=== PATIENT | male | born 1990 | race Caucasian/White ===

== ENCOUNTER 2018-07-20 06:22 | Emergency (ER) | payer MEDICAID ==
[2018-07-20 06:27] VITALS: BP 147/89
[2018-07-20] MEDS ORDERED: Aluminum Hydroxide/Magnesium Hydroxide/Simethicone Susp 30 ML Cup PO ONE (06:41)
--- NOTE | 2018-07-20 06:45 | EDM.PDOC ---
ED HPI GENERAL MEDICAL PROBLEM - General Chief Complaint: Chest Pain Stated Complaint: CHEST PAIN Time Seen by Provider: 07/20/18 06:35 Source of Information: Reports: Patient History Limitations: Reports: No Limitations - History of Present Illness INITIAL COMMENTS - FREE TEXT/NARRATIVE: 27-year-old male with a history of reflux esophagitis and gastritis presents with chest pressure this morning. He took a Prilosec and it's improving. No shortness of breath, no radiation of pain, no diaphoresis. He had jalapeno poppers last evening. He just wanted to make sure it wasn't his heart. He had similar symptoms a couple weeks ago and was checked out in the clinic, was told it was acid reflux. Location: Reports: Chest Quality: Reports: Burning, Pressure Improves with: Reports: Other (Nexium helps) Chest Pain Score (Numeric/FACES): 5 - Related Data Allergies Allergy/AdvReac Type Severity Reaction Status Date / Time No Known Allergies Allergy Verified 07/20/18 06:27 Home Meds: Home Meds Omeprazole 20 mg PO BID 07/20/18 [History] Past Medical History HEENT History: Reports: Other (See Below) Other HEENT History: Strep throat Gastrointestinal History: Reports: GERD, Other (See Below) Other Gastrointestinal History: acid reflux - Infectious Disease History Infectious Disease History: Reports: Chicken Pox - Past Surgical History GI Surgical History: Reports: Hernia Repair/Other Social & Family History - Family History Cardiac: Reports: CAD Endocrine/Metabolic: Reports: Diabetes, type II - Tobacco Use Smoking Status *Q: Never Smoker - Caffeine Use Caffeine Use: Reports: Energy Drinks, Soda - Recreational Drug Use Recreational Drug Use: No ED ROS GENERAL - Review of Systems Review Of Systems: See Below Constitutional: Denies: Fever, Chills HEENT: Reports: No Symptoms Respiratory: Denies: Shortness of Breath Cardiovascular: Reports: Chest Pain. Denies: Palpitations Endocrine: Denies: Fatigue GI/Abdominal: Denies: Nausea, Vomiting : Reports: No Symptoms Psychiatric: Reports: Anxiety ED EXAM, GENERAL - Physical Exam Exam: See Below Exam Limited By: No Limitations General Appearance: Alert, No Apparent Distress Respiratory/Chest: No Respiratory Distress, Lungs Clear Cardiovascular: Regular Rate, Rhythm GI/Abdominal: Soft, Non-Tender Neurological: Alert, Oriented Psychiatric: Anxious EKG INTERPRETATION Rhythm: NSR Course - Vital Signs Last Recorded V/S: Last Vital Signs Temp 97.6 F 07/20/18 06:25 Pulse 60 07/20/18 06:25 Resp 20 07/20/18 06:25 BP 147/89 H 07/20/18 06:25 Pulse Ox 98 07/20/18 06:25 - Orders/Labs/Meds Orders: Active Orders 24 hr Category Date Time Status EKG Documentation Completion [RC] ASDIRECTED Care 07/20/18 06:54 Active EKG 12 Lead [EK] Routine Ther 07/20/18 06:54 Ordered Meds: Medications Discontinued Medications Generic Name Dose Route Start Last Admin Trade Name Laurie PRN Reason Stop Dose Admin Al Hydroxide/Mg Hydroxide 30 ml 07/20/18 06:41 07/20/18 06:44 Mag-Al Plus PO 07/20/18 06:42 30 ml ONETIME ONE Administration - Re-Assessments/Exams Free Text/Narrative Re-Assessment/Exam: 07/20/18 06:45 An EKG was done which is perfectly normal. Patient was then given 30 mL of Maalox. 07/20/18 06:51 Maalox almost incidentally took away his discomfort. He is going to start Nexium daily and get liquid antacid for breakthrough reflux. Departure - Departure Time of Disposition: 07:00 Disposition: Home, Self-Care 01 Condition: Good Clinical Impression: Acid reflux Qualifiers: Esophagitis presence: esophagitis presence not specified Qualified Code(s): K21.9 - Gastro-esophageal reflux disease without esophagitis - Discharge Information Instructions: Heartburn, [id number]-Hoet Referrals: PCP,None [Primary Care Provider] - Forms: ED Department Discharge Care Plan Goals: Start Nexium daily and add liquid antacid as needed for extra control. Recheck with your regular doctor if symptoms persist despite treatment. - My Orders Last 24 Hours: My Active Orders 07/20/18 06:54 EKG Documentation Completion [RC] ASDIRECTED EKG 12 Lead [EK] Routine - Assessment/Plan Last 24 Hours: My Active Orders 07/20/18 06:54 EKG Documentation Completion [RC] ASDIRECTED EKG 12 Lead [EK] Routine
== END 2018-07-20 07:01 | disposition home or self-care (01) ==
LOC: JP.ED 06:22
DX: K21.9 Gastro-esophageal reflux disease without esophagitis (principal); Z79.899 Other long term (current) drug therapy
CPT/HCPCS: 93005; 99285; A9270

== ENCOUNTER 2019-03-04 11:15 | Emergency (ER) | payer MEDICAID, OTHER ==
[2019-03-04] MEDS ORDERED: Diphtheria,Pertussis(Acell),Tetanus Vaccine 0.5 ML SDV IM ONE (11:43)
--- NOTE | 2019-03-04 11:52 | EDM.PDOC ---
ED HPI GENERAL MEDICAL PROBLEM - General Chief Complaint: Laceration Stated Complaint: CUT OPEN L THUMB Time Seen by Provider: 03/04/19 11:40 Source of Information: Reports: Patient History Limitations: Reports: No Limitations - History of Present Illness INITIAL COMMENTS - FREE TEXT/NARRATIVE: Patient was at work when he sustained a superficial laceration to his left thumb. Denies any other injuries. DT not up to date. Onset: Today, Sudden - Related Data Allergies Allergy/AdvReac Type Severity Reaction Status Date / Time No Known Allergies Allergy Verified 07/20/18 06:27 Home Meds: Home Meds NK [No Known Home Meds] 03/04/19 [History] Past Medical History HEENT History: Reports: Other (See Below) Other HEENT History: Strep throat Gastrointestinal History: Reports: GERD, Other (See Below) Other Gastrointestinal History: acid reflux - Infectious Disease History Infectious Disease History: Reports: Chicken Pox - Past Surgical History GI Surgical History: Reports: Hernia Repair/Other Social & Family History - Family History Cardiac: Reports: CAD Endocrine/Metabolic: Reports: Diabetes, type II - Tobacco Use Smoking Status *Q: Never Smoker - Caffeine Use Caffeine Use: Reports: Energy Drinks, Soda ED ROS GENERAL - Review of Systems Review Of Systems: ROS reveals no pertinent complaints other than HPI. ED EXAM, SKIN/RASH Exam: See Below Exam Limited By: No Limitations General Appearance: Alert, WD/WN, No Apparent Distress Head: Atraumatic Neck: Normal Inspection, Supple Respiratory/Chest: No Respiratory Distress Cardiovascular: Regular Rate, Rhythm Extremities: Normal Inspection Neurological: Alert, Oriented, CN II-XII Intact, No Motor/Sensory Deficits Psychiatric: Normal Affect, Normal Mood Skin: Warm, Dry, Other (very superficial 1 cm laceration to left thumb pad, closed with Dermabond after cleaning well with Hebiclens and Saline) Course - Vital Signs Last Recorded V/S: Last Vital Signs Temp 35.9 C 03/04/19 11:39 Pulse 86 03/04/19 11:39 Resp 16 03/04/19 11:39 BP 123/78 03/04/19 11:39 Pulse Ox 95 03/04/19 11:39 Superficial Left Thumb Laceration Cleaned and Closed with Dermabond DT Updated Return to work with no restrictions - Orders/Labs/Meds Orders: Active Orders 24 hr Category Date Time Status Vaccines to be Administered [RC] PER UNIT ROUTINE Care 03/04/19 11:43 Ordered Meds: Medications Discontinued Medications Generic Name Dose Route Start Last Admin Trade Name Laurie PRN Reason Stop Dose Admin Diphtheria/Tetanus/Acell Pertussis 0.5 ml 03/04/19 11:43 Adacel IM 03/04/19 11:44 .ONCE ONE Departure - Departure Time of Disposition: 12:00 Disposition: Home, Self-Care 01 Condition: Good Clinical Impression: Laceration of thumb Qualifiers: Encounter type: initial encounter Damage to nail status: without damage Foreign body presence: without foreign body Laterality: left Qualified Code(s): S61.012A - Laceration without foreign body of left thumb without damage to nail , initial encounter - Discharge Information Instructions: Stitches, Rosario, or Adhesive Wound Closure, [id number] Referrals: PCP,None [Primary Care Provider] - Additional Instructions: Keep Clean and Dry. DO not use Bacitracin or Neosporin on wound as it will erode the glue Return with any concerns. - My Orders Last 24 Hours: My Active Orders 03/04/19 11:43 Vaccines to be Administered [RC] PER UNIT ROUTINE - Assessment/Plan Last 24 Hours: My Active Orders 03/04/19 11:43 Vaccines to be Administered [RC] PER UNIT ROUTINE
[2019-03-04 12:52] VITALS: BP 123/78; PULSE 86
== END 2019-03-04 12:09 | disposition home or self-care (01) ==
LOC: JP.ED 11:15
DX: S61.012A Laceration without foreign body of left thumb without damage to nail, initial encounter (principal); Z23 Encounter for immunization; W26.0XXA Contact with knife, initial encounter; Y99.0 Civilian activity done for income or pay
CPT/HCPCS: 12001; 90471; 90715; 99282-25; 99283

== ENCOUNTER 2020-08-23 07:41 | Emergency (ER) | payer OTHER, MEDICAID ==
[2020-08-23 08:14] VITALS: PULSE 75
--- NOTE | 2020-08-23 08:32 | EDM.PDOC ---
ED HPI GENERAL MEDICAL PROBLEM - General Chief Complaint: Bite:Animal, Insect Stated Complaint: SPIDER BITE? Time Seen by Provider: 08/23/20 08:24 Source of Information: Reports: Patient, Old Records, RN History Limitations: Reports: No Limitations - History of Present Illness INITIAL COMMENTS - FREE TEXT/NARRATIVE: 29 yo male presents with a wound to his R godoy. He noticed it yesterday morning. He is now sure how he got it. Says it kelley. His tetanus is UTD. Onset: Sudden Onset Date: 08/22/20 Duration: Day(s): (1), Constant Location: Reports: Lower Extremity, Right Quality: Reports: Burning Severity: Mild Improves with: Reports: None Worsens with: Reports: None Context: Reports: Trauma Associated Symptoms: Reports: No Other Symptoms Treatments [employer]: Reports: Other (see below) (cleaned at work yesterday) - Related Data Allergies Allergy/AdvReac Type Severity Reaction Status Date / Time No Known Allergies Allergy Verified 08/23/20 08:01 Home Meds: Home Meds NK [No Known Home Meds] 03/04/19 [History] Past Medical History - Past Health History Medical/Surgical History: Denies Medical/Surgical History HEENT History: Reports: Other (See Below) Other HEENT History: Strep throat Gastrointestinal History: Reports: GERD, Other (See Below) Other Gastrointestinal History: acid reflux - Infectious Disease History Infectious Disease History: Reports: Chicken Pox - Past Surgical History HEENT Surgical History: Reports: None GI Surgical History: Reports: Hernia Repair/Other Social & Family History - Family History Cardiac: Reports: CAD Endocrine/Metabolic: Reports: Diabetes, type II - Tobacco Use Tobacco Use Status *Q: Never Tobacco User - Caffeine Use Caffeine Use: Reports: Soda - Recreational Drug Use Recreational Drug Use: No ED ROS GENERAL - Review of Systems Review Of Systems: See Below Constitutional: Reports: No Symptoms Respiratory: Reports: No Symptoms Cardiovascular: Reports: No Symptoms GI/Abdominal: Reports: No Symptoms : Reports: No Symptoms Musculoskeletal: Reports: No Symptoms Skin: Reports: Wound Neurological: Reports: No Symptoms ED EXAM, ANIMAL BITE - Physical Exam Exam: See Below Exam Limited By: No Limitations General Appearance: Alert, WD/WN, No Apparent Distress, Obese Eye Exam: Bilateral Eye: Normal Inspection Ears: Normal External Exam, Hearing Grossly Normal Nose: Normal Inspection Throat/Mouth: Normal Lips, Normal Voice, No Airway Compromise Head: Atraumatic, Normocephalic Neck: Normal Inspection Respiratory/Chest: No Respiratory Distress Extremities: Normal Inspection Neurological: Alert, Oriented, CN II-XII Intact Psychiatric: Normal Affect, Normal Mood Skin Exam: Normal Color, Warm/Dry, Other (There is about a 1.5 cm wound to his R anterior godoy that is not fresh, there is no surrounding redness, no drainage, no induration. ) Course - Vital Signs Last Recorded V/S: Last Vital Signs Temp 36.6 C 08/23/20 08:13 Pulse 75 08/23/20 08:13 Resp 16 08/23/20 08:13 BP 170/97 H 08/23/20 08:13 Pulse Ox 96 08/23/20 08:13 Departure - Departure Time of Disposition: 08:28 Disposition: Home, Self-Care 01 Condition: Good Clinical Impression: Leg wound, right Qualifiers: Encounter type: initial encounter Qualified Code(s): S81.801A - Unspecified open wound, right lower leg, initial encounter - Discharge Information *PRESCRIPTION DRUG MONITORING PROGRAM REVIEWED*: Not Applicable *COPY OF PRESCRIPTION DRUG MONITORING REPORT IN PATIENT NITIN: Not Applicable Referrals: PCP,None [Primary Care Provider] - Additional Instructions: Clean your wound at least twice daily. Dry. Apply antibiotic ointment and a new dressing. Recheck for signs of infection. Sepsis Event Note (ED) - Evaluation Sepsis Screening Result: No Definite Risk - Focused Exam Vital Signs: Vital Signs Temp Pulse Resp BP Pulse Ox 08/23/20 08:13 36.6 C 75 16 170/97 H 96
[2020-08-23] MEDS ORDERED: Bacitracin Oint 1 GM U/D Packet TOP ONE (08:33)
[2020-08-23 08:35] VITALS: BP 128/79
== END 2020-08-23 08:47 | disposition home or self-care (01) ==
LOC: JP.ED 07:41
DX: S81.801A Unspecified open wound, right lower leg, initial encounter (principal); W57.XXXA Bitten or stung by nonvenomous insect and other nonvenomous arthropods, initial encounter
CPT/HCPCS: 99282

== ENCOUNTER 2020-09-05 05:38 | Emergency (ER) | payer MEDICAID ==
[2020-09-05 05:53] VITALS: BP 133/78; PULSE 67
--- NOTE | 2020-09-05 06:02 | EDM.PDOC ---
ED HPI GENERAL MEDICAL PROBLEM - General Chief Complaint: ENT Problem Stated Complaint: SORE THROAT Time Seen by Provider: 09/05/20 05:56 Source of Information: Reports: Patient History Limitations: Reports: No Limitations - History of Present Illness INITIAL COMMENTS - FREE TEXT/NARRATIVE: Shimon is a 29-year-old male presenting to the ED for evaluation of sore throat. Patient reports his symptoms started yesterday afternoon. He has a history for recurrent strep pharyngitis. He denies any fever, chills but does have pain with swallowing. throat Pain Score (Numeric/FACES): 6 - Related Data Allergies Allergy/AdvReac Type Severity Reaction Status Date / Time No Known Allergies Allergy Verified 09/05/20 05:49 Home Meds: Home Meds NK [No Known Home Meds] 03/04/19 [History] Past Medical History - Past Health History Medical/Surgical History: Denies Medical/Surgical History HEENT History: Reports: Other (See Below) Other HEENT History: Strep throat Gastrointestinal History: Reports: GERD, Other (See Below) Other Gastrointestinal History: acid reflux - Infectious Disease History Infectious Disease History: Reports: Chicken Pox - Past Surgical History HEENT Surgical History: Reports: None GI Surgical History: Reports: Hernia Repair/Other Social & Family History - Family History Cardiac: Reports: CAD Endocrine/Metabolic: Reports: Diabetes, type II - Tobacco Use Tobacco Use Status *Q: Never Tobacco User - Caffeine Use Caffeine Use: Reports: Coffee, Energy Drinks, Soda, Tea - Recreational Drug Use Recreational Drug Use: No ED ROS ENT - Review of Systems Review Of Systems: See Below Constitutional: Reports: No Symptoms HEENT: Reports: Throat Pain Respiratory: Reports: No Symptoms Cardiovascular: Reports: No Symptoms Endocrine: Reports: No Symptoms GI/Abdominal: Reports: No Symptoms : Reports: No Symptoms Musculoskeletal: Reports: No Symptoms Skin: Reports: No Symptoms Neurological: Reports: No Symptoms Psychiatric: Reports: No Symptoms Hematologic/Lymphatic: Reports: No Symptoms Immunologic: Reports: No Symptoms ED EXAM, ENT - Physical Exam Exam: See Below Exam Limited By: No Limitations General Appearance: Alert, No Apparent Distress Eye Exam: Bilateral Eye: EOMI, PERRL Nose: Normal Inspection Mouth/Throat: Normal Gums, Normal Lips, Pharyngeal Erythema, Tonsillar Erythema, Tonsillar Swelling. No: Tonsillar Exudates Head: Atraumatic, Normocephalic Neck: Normal Inspection, Supple, Non-Tender, Full Range of Motion. No: Lymphadenopathy (R), Lymphadenopathy (L) Respiratory/Chest: No Respiratory Distress, Lungs Clear, Normal Breath Sounds Cardiovascular: Normal Peripheral Pulses, Regular Rate, Rhythm, No Murmur GI/Abdominal: Normal Bowel Sounds, Soft, Non-Tender Neurological: Alert, Oriented, Normal Cognition, No Motor/Sensory Deficits Lymphatic: No Adenopathy Course - Vital Signs Last Recorded V/S: Last Vital Signs Temp 36.6 C 09/05/20 05:49 Pulse 67 09/05/20 05:49 Resp 16 09/05/20 05:49 BP 133/78 09/05/20 05:49 Pulse Ox 97 09/05/20 05:49 - Orders/Labs/Meds Orders: Active Orders 24 hr Category Date Time Status CULTURE STREP A CONFIRMATION [] Stat Lab 09/05/20 05:56 Results STREP SCRN A RAPID W CULT CONF [] Stat Lab 09/05/20 05:56 Results - Re-Assessments/Exams Free Text/Narrative Re-Assessment/Exam: 09/05/20 06:15 Shimon is a 29-year-old male presenting to the ED with sore throat that started yesterday afternoon. He does have a history for recurrent strep pharyngitis, however, on exam although he has tonsillar and pharyngeal erythema and edema, there are no exudates. He has no lymphadenopathy. He has no fever. A rapid group A strep test was performed and is negative. His symptoms are consistent with a viral pharyngitis. We will discussed management including salt water gargles, Sucrets or Chloraseptic lozenges, and Tylenol and/or ibuprofen for pain control. Indications return to the ED were discussed and the patient was discharged in satisfactory condition. Departure - Departure Time of Disposition: 06:16 Disposition: Home, Self-Care 01 Clinical Impression: Acute viral pharyngitis - Discharge Information *PRESCRIPTION DRUG MONITORING PROGRAM REVIEWED*: Not Applicable *COPY OF PRESCRIPTION DRUG MONITORING REPORT IN PATIENT NITIN: Not Applicable Instructions: Pharyngitis Referrals: PCP,None [Primary Care Provider] - Forms: ED Department Discharge Care Plan Goals: It appears that you have a viral infection affecting your throat. Your strep test was negative. I would recommend either doing salt water gargles and/or using Sucrets or Chloraseptic for symptomatic relief. You may also use Tylenol or ibuprofen for pain control. Unfortunately antibiotics are not warranted in this situation. Return to the ED should you have any significant worsening to the point where he cannot swallow or eat. We will reassess at that time. Sepsis Event Note (ED) - Evaluation Sepsis Screening Result: No Definite Risk - Focused Exam Vital Signs: Vital Signs Temp Pulse Resp BP Pulse Ox 09/05/20 05:49 36.6 C 67 16 133/78 97 - Problem List & Annotations (1) Acute viral pharyngitis SNOMED Code(s): 465887166 Code(s): J02.9 - ACUTE PHARYNGITIS, UNSPECIFIED Status: Acute Priority: Low Current Visit: Yes - Problem List Review Problem List Initiated/Reviewed/Updated: Yes - My Orders Last 24 Hours: My Active Orders 09/05/20 05:56 CULTURE STREP A CONFIRMATION [RM] Stat STREP SCRN A RAPID W CULT CONF [RM] Stat - Assessment/Plan Last 24 Hours: My Active Orders 09/05/20 05:56 CULTURE STREP A CONFIRMATION [RM] Stat STREP SCRN A RAPID W CULT CONF [RM] Stat
== END 2020-09-05 06:25 | disposition home or self-care (01) ==
LOC: JP.ED 05:38
DX: J02.9 Acute pharyngitis, unspecified (principal)
CPT/HCPCS: 87081; 87880-QW; 99283

== ENCOUNTER 2020-09-06 09:04 | Emergency (ER) | payer OTHER, MEDICAID ==
[2020-09-06 09:16] VITALS: BP 141/81; PULSE 72
[2020-09-06] MEDS ORDERED: Acetaminophen 500 MG Tab PO ONE (09:31)
[2020-09-06] MEDS ORDERED: Bacitracin Oint 1 GM U/D Packet TOP ONE (09:31)
[2020-09-06] MEDS ORDERED: Cyclobenzaprine 10 MG Tab PO ONE (09:31)
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
== END 2020-09-06 09:46 | disposition home or self-care (01) ==
LOC: JP.ED 09:04
DX: S39.012A Strain of muscle, fascia and tendon of lower back, initial encounter (principal); S00.81XA Abrasion of other part of head, initial encounter; V47.5XXA Car driver injured in collision with fixed or stationary object in traffic accident, initial encounter
CPT/HCPCS: 99283; A9270

== ENCOUNTER 2020-09-12 19:30 | Emergency (ER) | payer MEDICAID, OTHER ==
[2020-09-12 20:31] LABS: CORONAVIRUS COVID-19 NAA NEGATIVE (NEGATIVE)
--- NOTE | 2020-09-12 20:42 | EDM.PDOC ---
ED HPI GENERAL MEDICAL PROBLEM - General Chief Complaint: ENT Problem Stated Complaint: COVID SYMPTOMS Time Seen by Provider: 09/12/20 19:41 Source of Information: Reports: Patient History Limitations: Reports: No Limitations - History of Present Illness INITIAL COMMENTS - FREE TEXT/NARRATIVE: Shimon is a 29-year-old male presenting to the ED with concerns that he may have contracted Covid. Patient was in his usual state of health until today when he was eating lunch and started develop a sore throat and lost his sense of taste. The patient denies any fever but has had bilateral shoulder and neck pain. He denies any headache, shortness of breath, cough, nausea or vomiting, or diarrhea. Patient does not have any known Covid contacts. Headache Pain Score (Numeric/FACES): 5 - Related Data Allergies Allergy/AdvReac Type Severity Reaction Status Date / Time No Known Allergies Allergy Verified 09/06/20 09:15 Home Meds: Home Meds Cyclobenzaprine [Flexeril] 5 - 10 mg PO TID PRN #13 tab 09/06/20 [Rx] Past Medical History - Past Health History Medical/Surgical History: Denies Medical/Surgical History HEENT History: Reports: Other (See Below) Other HEENT History: Strep throat Respiratory History: Reports: SOB Gastrointestinal History: Reports: GERD, Other (See Below) Other Gastrointestinal History: acid reflux - Infectious Disease History Infectious Disease History: Reports: Chicken Pox - Past Surgical History Head Surgeries/Procedures: Reports: None HEENT Surgical History: Reports: None GI Surgical History: Reports: Hernia Repair/Other Social & Family History - Family History Family Medical History: No Pertinent Family History Cardiac: Reports: CAD Endocrine/Metabolic: Reports: Diabetes, type II - Tobacco Use Tobacco Use Status *Q: Never Tobacco User Second Hand Smoke Exposure: No - Caffeine Use Caffeine Use: Reports: Coffee, Energy Drinks - Recreational Drug Use Recreational Drug Use: No ED ROS ENT - Review of Systems Review Of Systems: See Below Constitutional: Reports: Other (Loss of taste today) HEENT: Reports: Throat Pain Respiratory: Reports: No Symptoms Cardiovascular: Reports: No Symptoms Endocrine: Reports: No Symptoms GI/Abdominal: Reports: No Symptoms : Reports: No Symptoms Musculoskeletal: Reports: No Symptoms Skin: Reports: No Symptoms Neurological: Reports: No Symptoms Psychiatric: Reports: No Symptoms Hematologic/Lymphatic: Reports: No Symptoms Immunologic: Reports: No Symptoms ED EXAM, ENT - Physical Exam Exam: See Below Exam Limited By: No Limitations General Appearance: Alert, No Apparent Distress, Anxious Eye Exam: Bilateral Eye: EOMI, PERRL Nose: Normal Inspection, Normal Mucousa Mouth/Throat: Normal Inspection, Normal Gums, Pharyngeal Erythema (Very mild erythema), Other (Green stripe down the middle of his tongue) Head: Atraumatic, Normocephalic Neck: Normal Inspection, Supple, Non-Tender, Full Range of Motion. No: Lymphadenopathy (R), Lymphadenopathy (L) Respiratory/Chest: No Respiratory Distress, Lungs Clear, Normal Breath Sounds Cardiovascular: Normal Peripheral Pulses, Regular Rate, Rhythm, No Murmur GI/Abdominal: Normal Bowel Sounds, Soft, Non-Tender Back: Normal Inspection, Full Range of Motion Extremities: Normal Inspection, Normal Range of Motion Neurological: Alert, Oriented, Normal Cognition, No Motor/Sensory Deficits Psychiatric: Normal Affect, Normal Mood Skin: Warm, Dry, Intact, Normal Color Lymphatic: No Adenopathy Course - Vital Signs Last Recorded V/S: Last Vital Signs Temp 36.8 C 09/12/20 19:59 Pulse 87 09/12/20 19:59 Resp 15 09/12/20 19:59 BP 133/92 H 09/12/20 19:59 Pulse Ox 97 09/12/20 19:59 - Orders/Labs/Meds Orders: Active Orders 24 hr Category Date Time Status CULTURE STREP A CONFIRMATION [] Stat Lab 09/12/20 20:39 Results STREP SCRN A RAPID W CULT CONF [] Stat Lab 09/12/20 20:39 Results Labs: Laboratory Tests 09/12/20 09/12/20 Range/Units 19:52 20:48 WBC 7.1 (4.5-11.0) K/uL RBC 5.29 (4.30-5.90) M/uL Hgb 15.3 H (12.0-15.0) g/dL Hct 46.4 (40.0-54.0) % MCV 88 (80-98) fL MCH 29 (27-31) pg MCHC 33 (32-36) % Plt Count 197 (150-400) K/uL Neut % (Auto) 57 (36-66) % Lymph % (Auto) 23 L (24-44) % Charlton % (Auto) 11 H (2-6) % Eos % (Auto) 7 H (2-4) % Baso % (Auto) 1 (0-1) % Influenza Type A RNA Negative (NEGATIVE) RSV RNA (INAAT) Negative (NEGATIVE) Influenza Type B RNA Negative (NEGATIVE) SARS-CoV-2 RNA ([facility]SELLE) Negative (NEGATIVE) - Re-Assessments/Exams Free Text/Narrative Re-Assessment/Exam: 09/12/20 20:42 the patient's Covid test is negative. We will proceed with a group A strep rapid test and a CBC. Patient likely has a viral syndrome. 09/12/20 21:14 CBC and group A strep were negative. This is likely a viral pharyngitis. Management was discussed and the patient was suitable for discharge in satisfactory condition. Departure - Departure Time of Disposition: 21:14 Disposition: Home, Self-Care 01 Clinical Impression: Acute viral pharyngitis - Discharge Information Instructions: Pharyngitis, [id number] Referrals: PCP,None [Primary Care Provider] - Forms: ED Department Discharge Care Plan Goals: Lab work today shows that you likely have an acute viral infection of the throat. Management of this is usually symptomatic relief. You may use Cepacol, Chloraseptic, or Sucrets for symptomatic relief. You may also do salt water gargles for relief. Take Tylenol and/or ibuprofen for either fever or body aches. Sepsis Event Note (ED) - Evaluation Sepsis Screening Result: No Definite Risk - Focused Exam Vital Signs: Vital Signs Temp Pulse Resp BP Pulse Ox 09/12/20 19:59 36.8 C 87 15 133/92 H 97 09/12/20 19:47 36.8 C 87 15 133/92 H 97 - Problem List & Annotations (1) Acute viral pharyngitis SNOMED Code(s): 971602659 Code(s): J02.9 - ACUTE PHARYNGITIS, UNSPECIFIED Status: Acute Priority: Low Current Visit: Yes - Problem List Review Problem List Initiated/Reviewed/Updated: Yes - My Orders Last 24 Hours: My Active Orders 09/12/20 20:39 CULTURE STREP A CONFIRMATION [RM] Stat STREP SCRN A RAPID W CULT CONF [RM] Stat - Assessment/Plan Last 24 Hours: My Active Orders 09/12/20 20:39 CULTURE STREP A CONFIRMATION [RM] Stat STREP SCRN A RAPID W CULT CONF [RM] Stat
[2020-09-12 21:24] VITALS: BP 126/83; PULSE 77
== END 2020-09-12 21:25 | disposition home or self-care (01) ==
LOC: JP.ED 19:30
DX: J02.9 Acute pharyngitis, unspecified (principal); Z20.822 Contact with and (suspected) exposure to COVID-19
CPT/HCPCS: 0241U; 36415; 85025; 87081; 87880; 99283

== ENCOUNTER 2020-10-24 10:38 | Emergency (ER) | payer MEDICAID ==
[2020-10-24 10:58] VITALS: BP 152/94; PULSE 95
[2020-10-24] MEDS ORDERED: Lidocaine 1% with EPINEPHrine 1:100,000 50 ML MDV SUBCUT STA (11:10)
[2020-10-24] MEDS ORDERED: Bacitracin Oint 1 GM U/D Packet TOP ONE (11:10)
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
== END 2020-10-24 11:36 | disposition home or self-care (01) ==
LOC: JP.ED 10:38
DX: S51.811A Laceration without foreign body of right forearm, initial encounter (principal); Z91.048 Other nonmedicinal substance allergy status; W26.8XXA Contact with other sharp object(s), not elsewhere classified, initial encounter
CPT/HCPCS: 12002; 99282; 99282-25

== ENCOUNTER 2020-12-07 07:17 | Emergency (ER) | payer MEDICAID ==
[2020-12-07 07:27] VITALS: BP 129/88; PULSE 75
[2020-12-07] MEDS ORDERED: Ondansetron 4 MG Tab.DIS PO ONE (08:11)
--- NOTE | 2020-12-07 08:20 | EDM.PDOC ---
ED HPI GENERAL MEDICAL PROBLEM - General Chief Complaint: Exposure to Heat or Cold Stated Complaint: LIGHTHEADED, VOMITING Time Seen by Provider: 12/07/20 08:05 Source of Information: Reports: Patient, Old Records, RN History Limitations: Reports: No Limitations - History of Present Illness INITIAL COMMENTS - FREE TEXT/NARRATIVE: 30 yo male is here with nausea and diarrhea that began this morning. Is a little light-headed at times. No fever. No cough or SOB. Was exposed to someone at work with Covid, has not been vaccinated. Onset: Today Onset Date: 12/07/20 Duration: Hour(s):, Constant Location: Reports: Abdomen Quality: Reports: Other (no pain) Severity: Mild Improves with: Reports: None Worsens with: Reports: Other (uncertain) Context: Reports: Other (See HPI) Associated Symptoms: Reports: Malaise, Nausea/Vomiting, Other (diarrhea). Denies: Fever/Chills Treatments ASSIGNMENT DESK ASSISTANT: Reports: Other (see below) (none) Mid-Sternal Chest Pain Score (Numeric/FACES): 6 - Related Data Allergies Allergy/AdvReac Type Severity Reaction Status Date / Time medical tape Allergy Rash Uncoded 12/07/20 07:28 Home Meds: Home Meds NK [No Known Home Meds] 12/07/20 [History] Past Medical History - Past Health History Medical/Surgical History: Denies Medical/Surgical History HEENT History: Reports: Other (See Below) Other HEENT History: Strep throat Respiratory History: Reports: SOB Gastrointestinal History: Reports: GERD, Other (See Below) Other Gastrointestinal History: acid reflux Endocrine/Metabolic History: Reports: Obesity/BMI 30+, Other (See Below) Other Endocrine/Metabolic History: prediabetic Dermatologic History: Reports: Other (See Below) Other Dermatologic History: 2 inch cut R forarm - Infectious Disease History Infectious Disease History: Reports: Chicken Pox - Past Surgical History Head Surgeries/Procedures: Reports: None GI Surgical History: Reports: Hernia Repair/Other Social & Family History - Family History Family Medical History: No Pertinent Family History Cardiac: Reports: CAD Endocrine/Metabolic: Reports: Diabetes, type II - Tobacco Use Tobacco Use Status *Q: Never Tobacco User Second Hand Smoke Exposure: No - Caffeine Use Caffeine Use: Reports: Coffee, Energy Drinks - Recreational Drug Use Recreational Drug Use: No ED ROS GENERAL - Review of Systems Review Of Systems: See Below Constitutional: Reports: Malaise. Denies: Fever HEENT: Reports: No Symptoms Respiratory: Reports: No Symptoms. Denies: Shortness of Breath, Cough Cardiovascular: Reports: No Symptoms GI/Abdominal: Reports: Diarrhea, Nausea, Vomiting. Denies: Bloody Stool, Distension, Hematemesis, Hematochezia : Reports: No Symptoms Musculoskeletal: Reports: No Symptoms Skin: Reports: No Symptoms Neurological: Reports: No Symptoms ED EXAM, GENERAL - Physical Exam Exam: See Below Exam Limited By: No Limitations General Appearance: Alert, WD/WN, No Apparent Distress Eye Exam: Bilateral Eye: Normal Inspection Ears: Normal External Exam, Normal Canal, Hearing Grossly Normal, Normal TMs Ear Exam: Bilateral Ear: Auricle Normal, Canal Normal, TM normal Nose: Normal Inspection, No Blood Throat/Mouth: Normal Inspection, Normal Lips, Normal Oropharynx, Normal Voice, No Airway Compromise Head: Atraumatic, Normocephalic Neck: Normal Inspection Respiratory/Chest: No Respiratory Distress, Lungs Clear, Normal Breath Sounds, No Accessory Muscle Use Cardiovascular: Regular Rate, Rhythm, No Edema GI/Abdominal: Normal Bowel Sounds, Soft, Non-Tender, No Distention Extremities: Normal Inspection, Normal Range of Motion, Non-Tender, No Pedal Edema Neurological: Alert, Oriented, CN II-XII Intact, Normal Cognition, No Motor/Sensory Deficits Psychiatric: Normal Affect, Normal Mood Skin Exam: Warm, Dry, Intact, Normal Color, No Rash Course - Vital Signs Last Recorded V/S: Last Vital Signs Temp 36.5 C 12/07/20 07:31 Pulse 75 12/07/20 07:31 Resp 16 12/07/20 07:31 BP 129/88 12/07/20 07:31 Pulse Ox 98 12/07/20 07:31 Orthostatic Blood Pressure [ 124/81 Standing] Orthostatic Blood Pressure [ 127/76 Sitting] Orthostatic Blood Pressure [ 114/78 Supine] - Orders/Labs/Meds Orders: Active Orders 24 hr Category Date Time Status Orthostatic Vital Signs [RC] ASDIRECTED Care 12/07/20 08:11 Active CORONAVIRUS COVID-19, [facility]IS[facility] Routine Lab 12/07/20 08:19 Ordered Meds: Medications Discontinued Medications Generic Name Dose Route Start Last Admin Trade Name Freq PRN Reason Stop Dose Admin Ondansetron HCl 4 mg 12/07/20 08:11 12/07/20 08:16 Ondansetron 4 Mg Tab.Dis PO 12/07/20 08:12 4 mg ONETIME ONE Administration Departure - Departure Time of Disposition: 08:23 Disposition: Home, Self-Care 01 Condition: Fair Clinical Impression: Nausea vomiting and diarrhea - Discharge Information *PRESCRIPTION DRUG MONITORING PROGRAM REVIEWED*: Not Applicable *COPY OF PRESCRIPTION DRUG MONITORING REPORT IN PATIENT NITIN: Not Applicable Instructions: Nausea and Vomiting, Adult, [id number], Diarrhea, Adult, [id number] Referrals: PCP,None [Primary Care Provider] - Forms: ED Department Discharge Additional Instructions: Use Zofran as directed for nausea control. Take loperamide per package instructions for diarrhea control. Sip on clear liquids to maintain hydration. Off work x 3 days until your Covid test results are back. Recheck with your doctor if worse. Sepsis Event Note (ED) - Evaluation Sepsis Screening Result: No Definite Risk - Focused Exam Vital Signs: Vital Signs Temp Pulse Resp BP Pulse Ox 12/07/20 07:31 36.5 C 75 16 129/88 98 12/07/20 07:26 36.5 C 75 16 129/88 98 - My Orders Last 24 Hours: My Active Orders 12/07/20 08:11 Orthostatic Vital Signs [RC] ASDIRECTED 12/07/20 08:19 CORONAVIRUS COVID-19, GISSELLE Routine - Assessment/Plan Last 24 Hours: My Active Orders 12/07/20 08:11 Orthostatic Vital Signs [RC] ASDIRECTED 12/07/20 08:19 CORONAVIRUS COVID-19, GISSELLE Routine
== END 2020-12-07 08:37 | disposition home or self-care (01) ==
LOC: JP.ED 07:17
DX: R11.2 Nausea with vomiting, unspecified (principal); R19.7 Diarrhea, unspecified; E66.9 Obesity, unspecified; Z20.822 Contact with and (suspected) exposure to COVID-19; Z68.36 Body mass index [BMI] 36.0-36.9, adult; Z91.048 Other nonmedicinal substance allergy status
CPT/HCPCS: 87635; 99284; A9270; U0002

== ENCOUNTER 2021-03-04 05:46 | Emergency (ER) | payer MEDICAID ==
[2021-03-04 06:07] VITALS: BP 138/79; PULSE 76
--- NOTE | 2021-03-04 06:15 | EDM.PDOC ---
ED HPI GENERAL MEDICAL PROBLEM - General Chief Complaint: Back Pain or Injury Stated Complaint: LOW BACK PAIN Time Seen by Provider: 03/04/21 06:00 Source of Information: Reports: Patient History Limitations: Reports: No Limitations - History of Present Illness INITIAL COMMENTS - FREE TEXT/NARRATIVE: 30-year-old male arrives with a couple complaints. 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 That seems to be worse while he is working. No fevers or chills, no dysuria, no incontinence. No radiculopathy down his legs. Onset: Gradual Duration: Day(s): (2 to 3 days of symptoms) Location: Reports: Back, Other (Left testicle) Quality: Reports: Burning, Stabbing Improves with: Reports: Rest Worsens with: Reports: Movement Associated Symptoms: Denies: Chest Pain, Cough, Fever/Chills, Headaches, Loss of Appetite, Nausea/Vomiting, Shortness of Breath, Weakness lower back pain and groin pain Pain Score (Numeric/FACES): 7 - Related Data Allergies Allergy/AdvReac Type Severity Reaction Status Date / Time medical tape Allergy Rash Uncoded 03/04/21 05:59 Home Meds: Home Meds NK [No Known Home Meds] 12/07/20 [History] Past Medical History - Past Health History Medical/Surgical History: Denies Medical/Surgical History HEENT History: Reports: Other (See Below) Other HEENT History: Strep throat Respiratory History: Reports: SOB Gastrointestinal History: Reports: GERD, Other (See Below) Other Gastrointestinal History: acid reflux Endocrine/Metabolic History: Reports: Obesity/BMI 30+, Other (See Below) Other Endocrine/Metabolic History: prediabetic Dermatologic History: Reports: Other (See Below) Other Dermatologic History: 2 inch cut R forarm - Infectious Disease History Infectious Disease History: Reports: Chicken Pox - Past Surgical History Head Surgeries/Procedures: Reports: None HEENT Surgical History: Reports: None GI Surgical History: Reports: Hernia Repair/Other Social & Family History - Family History Family Medical History: No Pertinent Family History Cardiac: Reports: CAD Endocrine/Metabolic: Reports: Diabetes, type II - Tobacco Use Tobacco Use Status *Q: Never Tobacco User - Caffeine Use Caffeine Use: Reports: Coffee - Recreational Drug Use Recreational Drug Use: No ED ROS GENERAL - Review of Systems Review Of Systems: See Below Constitutional: Denies: Fever, Chills HEENT: Reports: No Symptoms Respiratory: Denies: Shortness of Breath, Cough Cardiovascular: Denies: Chest Pain, Palpitations GI/Abdominal: Reports: Nausea, Vomiting (He had 1 sharp episode of pain this morning so bad he threw up). Denies: Abdominal Pain : Reports: Other (Left testicular pain). Denies: Dysuria, Flank Pain, Frequency, Urgency Musculoskeletal: Reports: Back Pain Skin: Reports: No Symptoms Neurological: Reports: No Symptoms Psychiatric: Reports: No Symptoms ED EXAM,LOWER BACK PAIN/INJURY - Physical Exam Exam: See Below Exam Limited By: No Limitations General Appearance: Alert, No Apparent Distress Eye Exam: Bilateral Eye: Normal Inspection Head: Atraumatic Neck: Non-Tender Respiratory/Chest: Lungs Clear Cardiovascular: Regular Rate, Rhythm GI/Abdominal: Soft, Non-Tender (Male) Exam: Other (Left epididymis around the testicle is swollen and tender, there is no hernia bilaterally) Back Exam: Other (Patient does have tenderness to palpation of the paralumbar muscles just above the sacrum, worse with rotation against resistance) Extremities: Normal Inspection Neurological: Alert, Oriented x 3 Psychiatric: Flat Affect Skin Exam: Warm, Dry Course - Vital Signs Last Recorded V/S: Last Vital Signs Temp 97.9 F 03/04/21 06:02 Pulse 76 03/04/21 06:02 Resp 14 03/04/21 06:02 BP 138/79 03/04/21 06:02 Pulse Ox 95 03/04/21 06:02 - Re-Assessments/Exams Free Text/Narrative Re-Assessment/Exam: 03/04/21 06:14 This patient has not taken any anti-inflammatory medications for pain. He has an acute lower back flare of pain likely due to increase activity at work. He may also have some left epididymitis. He will be placed on ciprofloxacin 500 mg twice daily for the next 5 days, and he was given 20 doses of ketorolac to take 3-4 times daily. Increase activity as tolerated, and recheck in 2 to 3 days if not improving. If the testicular pain is not improving, he needs an ultrasound in 2 to 3 days and he understands this. I did encourage him to try to work through his back pain. Departure - Departure Time of Disposition: 06:17 Disposition: Home, Self-Care 01 Clinical Impression: Epididymitis, left Low back pain Qualifiers: Chronicity: acute Back pain laterality: bilateral Sciatica presence: without sciatica Qualified Code(s): M54.5 - Low back pain - Discharge Information Instructions: Acute Back Pain, Adult, Epididymitis Referrals: PCP,None [Primary Care Provider] - Forms: ED Department Discharge Care Plan Goals: Take 1 pain pill every 6 hours for at least 3 days and up to 5 days if needed. Increase activity as tolerated, and take 1 antibiotic twice daily for 5 days. Save the remaining 10 pills for any recurrence of testicular pain in the future. Recheck in 2 to 3 days if not improving satisfactorily, you may need an ultrasound for further evaluation of the testicular pain if not improving, return sooner if worsening despite treatment, such as fever or increased pain. Sepsis Event Note (ED) - Evaluation Sepsis Screening Result: No Definite Risk - Focused Exam Vital Signs: Vital Signs Temp Pulse Resp BP Pulse Ox 03/04/21 06:02 97.9 F 76 14 138/79 95
== END 2021-03-04 06:22 | disposition home or self-care (01) ==
LOC: JP.ED 05:46
DX: N45.1 Epididymitis (principal); M54.5 Low back pain; Z91.09 Other allergy status, other than to drugs and biological substances; E66.9 Obesity, unspecified; Z68.37 Body mass index [BMI] 37.0-37.9, adult
CPT/HCPCS: 99283

== ENCOUNTER 2021-06-18 15:29 | Emergency (ER) | payer MEDICAID ==
[2021-06-18 16:29] VITALS: BP 139/85; PULSE 75
[2021-06-18] MEDS ORDERED: HYDROmorphone 0.5 MG/0.5 ML Syringe IVPUSH ONE (18:24)
[2021-06-18] MEDS ORDERED: Sodium Chloride 0.9% 80 ML IV SCH (18:30)
[2021-06-18] MEDS ORDERED: Sodium Chloride 0.9% 1,000 ML IV SCH (18:30)
[2021-06-18] MEDS ORDERED: Iopamidol 612 MG/ML 150 ML Bottle IV SCH (18:30)
== END 2021-06-18 19:44 | disposition home or self-care (01) ==
LOC: JP.ED 15:29
DX: K57.32 Diverticulitis of large intestine without perforation or abscess without bleeding (principal); E66.9 Obesity, unspecified; Z68.36 Body mass index [BMI] 36.0-36.9, adult; Z91.048 Other nonmedicinal substance allergy status; Z88.8 Allergy status to other drugs, medicaments and biological substances
CPT/HCPCS: 36415; 74177; 80053; 81001; 85025; 86140; 96374; 99284; J1170; J7030; Q9967

== ENCOUNTER 2022-01-16 09:22 | Emergency (ER) | payer MEDICAID ==
[2022-01-16 10:00] VITALS: BP 123/71; PULSE 79
[2022-01-16] MEDS ORDERED: Ketorolac 30 MG/ML SDV IM ONE (11:04)
[2022-01-16 11:47] LABS: ESTIMATED GFR 117 mL/min (>60)
== END 2022-01-16 12:48 | disposition home or self-care (01) ==
LOC: JP.ED 09:22
DX: S39.011A Strain of muscle, fascia and tendon of abdomen, initial encounter (principal); K21.9 Gastro-esophageal reflux disease without esophagitis; E66.9 Obesity, unspecified; Z68.34 Body mass index [BMI] 34.0-34.9, adult; Z88.5 Allergy status to narcotic agent; Z91.048 Other nonmedicinal substance allergy status; X50.0XXA Overexertion from strenuous movement or load, initial encounter
CPT/HCPCS: 36415; 80053; 81001; 83605; 83690; 85025; 96372; 99284; J1885

== ENCOUNTER 2022-04-01 08:25 | Emergency (ER) | payer MEDICAID ==
[2022-04-01 08:37] VITALS: BP 145/83; PULSE 76
== END 2022-04-01 09:32 | disposition home or self-care (01) ==
LOC: JP.ED 08:25
DX: R09.1 Pleurisy (principal); J06.9 Acute upper respiratory infection, unspecified; E11.9 Type 2 diabetes mellitus without complications; E66.9 Obesity, unspecified; Z68.34 Body mass index [BMI] 34.0-34.9, adult; Z88.8 Allergy status to other drugs, medicaments and biological substances; Z91.048 Other nonmedicinal substance allergy status; Z79.899 Other long term (current) drug therapy; Z86.16 Personal history of COVID-19
CPT/HCPCS: 99284

== ENCOUNTER 2022-07-10 02:14 | Emergency (ER) | payer MEDICAID ==
[2022-07-10 02:28] VITALS: BP 146/93; PULSE 105
[2022-07-10 03:23] LABS: CORONAVIRUS COVID-19 NAA NEGATIVE (NEGATIVE)
== END 2022-07-10 03:40 | disposition home or self-care (01) ==
LOC: JP.ED 02:14
DX: J03.90 Acute tonsillitis, unspecified (principal); F41.9 Anxiety disorder, unspecified; F32.A Depression, unspecified; E66.9 Obesity, unspecified; Z68.41 Body mass index [BMI] 40.0-44.9, adult; Z20.822 Contact with and (suspected) exposure to COVID-19; Z79.899 Other long term (current) drug therapy; Z88.8 Allergy status to other drugs, medicaments and biological substances; Z91.09 Other allergy status, other than to drugs and biological substances
CPT/HCPCS: 0241U; 36415; 80048; 85025; 86140; 87081; 87880-QW; 99282; 99284

== ENCOUNTER 2023-05-17 21:27 | Emergency (ER) | payer MEDICAID ==
[2023-05-17 21:45] VITALS: BP 146/94; PULSE 100
[2023-05-17 22:28] LABS: INFLUENZA A NAA NEGATIVE (NEGATIVE); INFLUENZA B NAA NEGATIVE (NEGATIVE); RESPIRATORY SYNCYTIAL VIR NAA NEGATIVE (NEGATIVE)
[2023-05-17 22:34] LABS: CORONAVIRUS COVID-19 NAA POSITIVE (NEGATIVE)
== END 2023-05-17 22:52 | disposition home or self-care (01) ==
LOC: JP.ED 21:27
DX: U07.1 COVID-19 (principal); K21.9 Gastro-esophageal reflux disease without esophagitis; E66.9 Obesity, unspecified; Z79.899 Other long term (current) drug therapy; Z91.048 Other nonmedicinal substance allergy status; Z88.6 Allergy status to analgesic agent; Z68.38 Body mass index [BMI] 38.0-38.9, adult
CPT/HCPCS: 0241U; 99284

== ENCOUNTER 2023-07-09 15:38 | Emergency (ER) | payer MEDICAID ==
[2023-07-09 15:50] VITALS: BP 171/97; PULSE 96
[2023-07-09 16:29] LABS: APPEARANCE,URINE CLEAR (CLEAR); BILIRUBIN,URINE NEGATIVE (NEGATIVE); COLOR,URINE YELLOW (YELLOW); GLUCOSE,URINE NEGATIVE (NEGATIVE); KETONES,URINE NEGATIVE (NEGATIVE); LEUKOCYTE ESTERASE,URINE NEGATIVE (NEGATIVE); NITRITE,URINE NEGATIVE (NEGATIVE); OCCULT BLOOD,URINE NEGATIVE (NEGATIVE); PH,URINE 6.5 (5.0-8.0); PROTEIN,URINE NEGATIVE (NEGATIVE); UROBILINOGEN,URINE 0.2 EU/dL (0.2-1.0)
[2023-07-09 16:38] LABS: AMORPHOUS SEDIMENT,URINE NOT SEEN; BACTERIA,URINE NOT SEEN; EPITHELIAL CELLS,URINE RARE; MUCUS,URINE NOT SEEN; RBC,URINE 0-5 (0-5); WBC,URINE NOT SEEN (0-5)
== END 2023-07-09 17:43 | disposition home or self-care (01) ==
LOC: JP.ED 15:38
DX: N43.3 Hydrocele, unspecified (principal); Z91.048 Other nonmedicinal substance allergy status; Z88.6 Allergy status to analgesic agent; Z86.16 Personal history of COVID-19; E66.9 Obesity, unspecified; Z68.41 Body mass index [BMI] 40.0-44.9, adult
CPT/HCPCS: 76870; 81001; 93975; 99284

== ENCOUNTER 2024-10-02 18:55 | Emergency (ER) | payer SELFPAY ==
[2024-10-02 19:20] VITALS: BP 145/89; PULSE 72
[2024-10-02] MEDS: Lidocaine 2% Viscous Solution 15 ML UD PO ONE (19:59)
== END 2024-10-02 20:17 | disposition home or self-care (01) ==
LOC: JP.ED 18:55
DX: J02.9 Acute pharyngitis, unspecified (principal); Z88.5 Allergy status to narcotic agent; Z91.048 Other nonmedicinal substance allergy status
CPT/HCPCS: 87651; 99283; A9270